=== PATIENT | female | born 1950 ===

== ENCOUNTER 2023-09-26 13:29 | Emergency (ER) | payer MEDICARE, MEDICAID, SELFPAY ==
[2023-09-26 13:33] VITALS: BP 165/108; PULSE 86; TEMP 37.4; O2SAT 98; BMI 36.7
--- NOTE | 2023-09-26 13:49 | XRR_ITS ---
PROCEDURE INFORMATION: Exam: XR Chest Exam date and time: 09/26/2023 2:07 PM Age: 73 years old Clinical indication: HTN, numbness in lips and legs TECHNIQUE: Imaging protocol: Radiologic exam of the chest. Views: 1 view. COMPARISON: No relevant prior studies available. FINDINGS: Lungs: No focal consolidation. Pleural spaces: No pleural effusion. No pneumothorax. Heart/Mediastinum: No cardiomegaly. Bones/joints: No acute findings. XR/XR chest 1V portable [id number] IMPRESSION: No acute findings.
--- NOTE | 2023-09-26 13:49 | ECG_ITS ---
[facility] Test Date: 2023-09-26 Pat Name: Maggie Jimenez Department: Room: Gender: Female Party Plan Sales Agent: : [id number] Requested By: Vincent Thomas Order Number: [id number] Juanita MD: Darrius Montez M.D. Measurements Intervals [place] Rate: 86 P: 53 IA: 160 QRS: -44 QRSD: 102 T: 6 QT: 363 QTc: 434 Interpretive Statements SINUS RHYTHM LEFT AXIS DEVIATION [QRS AXIS < -30] PATTERN CONSISTENT WITH PULMONARY DISEASE MODERATE VOLTAGE CRITERIA FOR LVH, CONSIDER NORMAL VARIANT [MEETS CRITERIA IN ONE OF: R(aVL), S(V1), R(V5), R(V5/V6)+S(V1)] No previous ECG available for comparison Electronically Signed On 09-26-2023 15:12:00 VPK TEACHER by Darrius Montez M.D. [id number]
[2023-09-26 14:10] LABS: Basophils % 0.4 %; Eosinophils # 0.1 10^3/uL (0.0-0.8); Eosinophils % 1.6 %; Hematocrit 41.1 % (36-47); Lymphocytes # 2.7 10^3/uL (0.8-4.8); Lymphocytes % 29.7 %; Mean Corpuscular HGB Conc 35.3 g/dL (30-55); Mean Corpuscular Volume 82.2 fl (85-98); Mean Platelet Volume 9.3 fL (7.4-10.4); Monocytes # 0.5 10^3/uL (0.2-0.9); Monocytes % 5.8 %; Neutrophils # 5.54 10^3/uL (1.8-7.7); Neutrophils % 61.8 %; Nucleated Red Blood Cells % 0 %; Platelet Count 236 10^3/cmm (157-399); Red Cell Distribution Width 12.4 % (12.1-15.1); White Blood Count 8.96 10^3/uL (3.29-11.43)
--- NOTE | 2023-09-26 14:20 | CTR_ITS ---
PROCEDURE INFORMATION: Exam: CT Head Without Contrast Exam date and time: 09/26/2023 2:52 PM Age: 73 years old Clinical indication: Weakness, facial; Prior surgery; Surgery date: 6+ months; Surgery type: Hearing implant; Additional info: Left sided facial, ue, and le numnbness, tingling TECHNIQUE: Imaging protocol: Computed tomography of the head without contrast. Radiation optimization: All CT scans at this facility use at least one of these dose optimization techniques: automated exposure control; mA and/or kV adjustment per patient size (includes targeted exams where dose is matched to clinical indication); or iterative reconstruction. REPORTING DATA: Count of CT and Cardiac NM exams in prior 12 months: This patient has received 0 known CTs and 0 known cardiac nuclear medicine studies in the 12 months prior to the current study. COMPARISON: No relevant prior studies available. RADIATION DOSE METRICS: Total DLP (mGy-cm): 1110 FINDINGS: Limitations: Right parietal hardware artifact limits evaluation of this region. Brain: No hemorrhage. Chronic white matter and senescent changes. Cerebral ventricles: No ventriculomegaly. Paranasal sinuses: Visualized sinuses are grossly clear. Mastoid air cells: Right mastoid effusion. Cochlear implant. Bones/joints: No acute findings. Soft tissues: No acute findings. CT/CT head wo con* [id number] IMPRESSION: No acute intracranial findings.
--- NOTE | 2023-09-26 14:21 | ED_ITS ---
HPI - Neuro Symptoms/Deficit 2 General: Chief Complaint: Neuro Symptoms/Deficit Stated Complaint: Stroke Symptoms Time Seen by Provider: 09/26/23 13:49 History of Present Illness: Patient presents to the ER with complaints of intermittent left-sided facial, left upper extremity, left lower extremity numbness and tingling since yesterday. Patient is not having the numbness and tingling currently. The areas are numb and tingly there is no pain to any of the areas. 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 Patient is not on any blood thinners but did take a baby aspirin this morning. Patient does not have any shortness of breath chest pain diaphoresis nausea vomiting diarrhea. Review of Systems 2 General: Reports: 10 or more systems reviewed and unremarkable except in HPI and below Physical Exam 2 Const: COMMON NORMALS: no acute distress, average body habitus, patient oriented x3, no limitations, healthy appearing, alert and well nourished HENMT: COMMON NORMALS: normocephalic, atraumatic, hearing grossly normal bilaterally, external ears normal, Normal external nose present, moist oral mucous membranes and oropharynx normal HEAD & SCALP: normocephalic and atraumatic NOSE: Normal external nose present EXTERNAL EAR: Yes external ears normal Eye: COMMON NORMALS: Equal, round and reactive pupils present, EOMs intact bilaterally, conjunctivae normal and no scleral icterus CONJUNCTIVA: Yes conjunctivae normal PUPIL: Yes Equal, round and reactive pupils present Neck/C-Spine: COMMON NORMALS: full ROM, no lymphadenopathy, supple, no meningeal signs, no JVD and Thyroid normal THYROID: Thyroid normal Chest: COMMONS NORMALS: normal inspection of the chest and normal palpation of entire chest wall Resp: COMMON NORMALS: normal respiratory effort, No retractions, No use of accessory muscles and clear to auscultation bilaterally AUSCULTATION: clear to auscultation bilaterally Cardio: COMMON NORMALS: no JVD, regular rate, regular rhythm, S1 normal heart sound present, S2 normal heart sound present, No gallops present (Cardio), No clicks present (Cardio), No murmurs present (Cardio) and No rub (Cardio) R ATE: regular rate RHYTHM: regular rhythm HEART SOUNDS: S1 normal heart sound present and S2 normal heart sound present GI: COMMON NORMALS: Normal to inspection, nondistended, normoactive bowel sounds present, Soft to palpation, non-tender, No hepatosplenomegaly present and no masses PALPATION: Yes Soft to palpation and Yes No hepatosplenomegaly present Neuro: COMMON NORMALS: patient oriented x3, CN's II-XII intact bilaterally, moves all extremities, no focal motor deficits, no sensory deficits noted and deep tendon reflexes 2+ bilaterally SENSORIUM/ORIENTATION: Yes alert M ENINGEAL SIGNS: Yes no meningeal signs Course 2 Vital Signs: Vital signs: Vital Signs Temperature 99.4 F 09/26/23 13:33 Pulse Rate 86 09/26/23 13:33 Blood Pressure 165/108 09/26/23 13:33 Pulse Oximetry 98 09/26/23 13:33 Oxygen Delivery Me thod Room Air 09/26/23 13:33 MDM - Neuro Symptoms/Deficit Medical Decision Making Patient was complaining of left-sided numbness and tingling. Patient was worked up in normal strokelike fashion with chest x-ray, head CT both of which were negative, lab work which revealed a mildly low magnesium. Otherwise normal except for elevated glucose of 332. It is felt that patient is probably been having some paresthesias or may be a TIA. Patient will be instructed to take a full-strength aspirin every day try to get her blood sugar under better control and follow-up with her family practice physician for further evaluation and treatment. Differential Diagnosis Unlikely carpal tunnel syndrome, convulsions, delirium, subarachnoid hemorrhage, peripheral neuropathy, cerebrovascular accident, multiple sclerosis or transient cerebral ischemia Medical Records I reviewed the patient's medical records. Lab Data I reviewed the patient's lab results. 09/26/23 14:05 09/26/23 14:05 Radiology Impressions Chest X-Ray 09/26/23 13:49 IMPRESSION: No acute findings. Head CT 09/26/23 14:20 IMPRESSION: No acute intracranial findings. Laboratory Results WBC 8.96 10^3/uL (3.29-11.43) 09/26/23 14:05 RBC 5.00 10^6/uL (3.85-5.65) 09/26/23 14:05 Hgb 14.50 g/dL (11.27-16.99) 09/26/23 14:05 Hct 41.1 % (36-47) 09/26/23 14:05 MCV 82.2 fl (85-98) L 09/26/23 14:05 MCH 29.0 pg (27-33) 09/26/23 14:05 MCHC 35.3 g/dL (30-55) 09/26/23 14:05 RDW 12.4 % (12.1-15.1) 09/26/23 14:05 Plt Count 236 10^3/cmm (157-399) 09/26/23 14:05 MPV 9.3 fL (7.4-10.4) 09/26/23 14:05 Neut % (Auto) 61.8 % 09/26/23 14:05 Lymph % (Auto) 29.7 % 09/26/23 14:05 [place] % (Auto) 5.8 % 09/26/23 14:05 Eos % (Auto) 1.6 % 09/26/23 14:05 Baso % (Auto) 0.4 % 09/26/23 14:05 Neut # (Auto) 5.54 10^3/uL (1.8-7.7) 09/26/23 14:05 Lymph # (Auto) 2.7 10^3/uL (0.8-4.8) 09/26/23 14:05 [place] # (Auto) 0.5 10^3/uL (0.2-0.9) 09/26/23 14:05 Eos # (Auto) 0.1 10^3/uL (0.0-0.8) 09/26/23 14:05 Baso # (Auto) 0.0 10^3/uL (0.0-0.1) 09/26/23 14:05 Nucleated RBC % (auto) 0 % 09/26/23 14:05 Nucleated RBCs # 0.0 /100WBC 09/26/23 14:05 Sodium 135 mmol/L (136-145) L 09/26/23 14:05 Potassium 4.1 mmol/L (3.5-5.1) 09/26/23 14:05 Chloride 99 mmol/L (98-107) 09/26/23 14:05 Carbon Dioxide 23 mmol/L (22-29) 09/26/23 14:05 Anion Gap 17.1 (5-19) 09/26/23 14:05 BUN 10 mg/dL (8-23) 09/26/23 14:05 Creatinine 0.4 mg/dL (0.5-0.9) L 09/26/23 14:05 GFR Calculation Not Reportable 09/26/23 14:05 Glucose 332 mg/dL (65-115) H 09/26/23 14:05 Calculated Osmolality 292 mOsm/kg (285-295) 09/26/23 14:05 Calcium 9.3 mg/dL (8.5-10.5) 09/26/23 14:05 Magnesium 1.5 mg/dL (1.7-2.3) L 09/26/23 14:05 Total Bilirubin 0.5 mg/dL (0.15-1.2) 09/26/23 14:05 AST 19 U/L (0-32) 09/26/23 14:05 ALT 16 U/L (0-33) 09/26/23 14:05 Alkaline Phosphatase 103 U/L (35-105) 09/26/23 14:05 C-Reactive Protein 4.4 mg/L (0.0-4.9) 09/26/23 14:05 Total Protein 7.0 g/dL (6.6-8.7) 09/26/23 14:05 Albumin 3.7 g/dL (3.5-5.2) 09/26/23 14:05 Globulin 3.3 g/dL (1.3-4.6) 09/26/23 14:05 TSH 0.30 uIU/mL (0.27-4.20) 09/26/23 14:05 All radiology interpretation(s) finalized by discharge EKG Data EKG 1: I personally reviewed and interpreted this EKG as follows: EKG interpretation date: 09/26/23 EKG interpretation time: 14:00 Prior EKG tracings: not available for review Interpretation: EKG showed ventricular rate 86 bpm, VA interval 160, QRS duration 102, QTc of 406, sinus rhythm, left axis deviation, Discharge Plan Discharge Patient Disposition: Home Clinical Impression: Paresthesia, Hyperglycemia due to diabetes mellitus, Hypomagnesemia Condition: Stable Prescriptions: No Action Aspir-81 81 mg Tablet,Delayed Release (Dr/Ec) 81 mg PO DAILY meloxicam 7.5 mg tablet 7.5 mg PO DAILY glipizide 5 mg tablet 5 mg PO BID melatonin 3 mg Capsule 3 mg PO QPM PRN (Reason: Sleep) Immunity Vitamin 1 tab PO DAILY Discharge Orders: Discharge ED (Routine); Ordered 09/26/23 Ordered By: Vincent Thomas Referrals: Tammy Lawrence [Primary Care Provider] - 1 week Patient Instructions: Paresthesia (ED), Diabetic Hyperglycemia (ED), Hypomagnesemia (ED) Activity Restrictions/Additional Instructions: Take all prescriptions as prescribed. Please start taking 1 daily full-strength 325 mg aspirin. Please follow-up with your family practice physician for further evaluation and treatment as you may benefit from a neurology consult. Please watch your diet and watch her blood sugars as this may contribute to worsening conditions. If your condition worsens please feel free to return to the ER. Coding Level of Care Code ED Full Stack Developer for Darlyn Dumont
[2023-09-26 14:38] LABS: Albumin Level 3.7 g/dL (3.5-5.2); Alkaline Phosphatase 103 U/L (35-105); Anion Gap 17.1 (5-19); Aspartate Amino Transferase 19 U/L (0-32); Blood Urea Nitrogen 10 mg/dL (8-23); C Reactive Protein 4.4 mg/L (0.0-4.9); Calcium 9.3 mg/dL (8.5-10.5); Carbon Dioxide 23 mmol/L (22-29); Chloride 99 mmol/L (98-107); Globulin 3.3 g/dL (1.3-4.6); Glucose 332 mg/dL (65-115); Magnesium 1.5 mg/dL (1.7-2.3); Osmolality Calculated 292 mOsm/kg (285-295); Potassium 4.1 mmol/L (3.5-5.1); Sodium 135 mmol/L (136-145); Total Bilirubin 0.5 mg/dL (0.15-1.2)
[2023-09-26 14:49] LABS: Alanine Aminotransferase 16 U/L (0-33)
[2023-09-26 16:33] VITALS: BP 163/89; PULSE 80; O2SAT 97
== END 2023-09-26 16:34 | disposition home or self-care (01) ==
PROVIDERS: Emergency Provider Emergency Medicine; PCP Internal Medicine
DX: R20.2 Paresthesia of skin (principal); E11.65 Type 2 diabetes mellitus with hyperglycemia; E83.42 Hypomagnesemia; Z79.82 Long term (current) use of aspirin; Z79.84 Long term (current) use of oral hypoglycemic drugs
CPT/HCPCS: 36415; 70450; 71045; 80053; 83735; 84443; 85025; 86140; 93005; 99285